=== PATIENT | male | born 1940 | race Caucasian/White ===

== ENCOUNTER 2023-06-10 23:41 | Inpatient (IN) | payer OTHER, MEDICARE ==
[~2023-06-10] VITALS: Ht 175.3 cm; Wt 82.0 kg
[~2023-06-10 23:41] MED LIST: Heparin Sodium,Porcine 5,000 UNIT/0.5 ML SDV SC ONE
[2023-06-11] VITALS (27 sets, daily range): BP systolic 93–141; BP diastolic 50–89
[2023-06-11 00:15] LABS: BASOPHILS ABSOLUTE AUTO 0.04 K/mm3 (0.00-0.23); BASOPHILS PERCENT AUTO 0 % (0-2); EOSINOPHILS ABSOLUTE AUTO 0.03 K/mm3 (0.00-0.68); EOSINOPHILS PERCENT AUTO 0 % (0-6); Hematocrit 38.6 % (37.0-53.0); Hemoglobin 12.9 g/dL (13.5-17.5); IMMATURE GRAN ABSOLUTE AUTO 0.02 K/mm3 (0.00-0.10); IMMATURE GRAN PERCENT AUTO 0 % (0-1); LYMPHOCYTES ABSOLUTE AUTO 2.21 K/mm3 (0.84-5.20); LYMPHOCYTES PERCENT AUTO 20 % (21-46); MONOCYTES ABSOLUTE AUTO 1.01 K/mm3 (0.16-1.47); MONOCYTES PERCENT AUTO 9 % (4-13); Mean Corpuscular HGB 30.9 pg (26.0-34.0); Mean Corpuscular HGB Conc 33.4 g/dL (31.5-36.5); Mean Corpuscular Volume 92 fL (80-100); Mean Platelet Volume 10.3 fL (9.1-12.4); NEUTROPHILS ABSOLUTE AUTO 7.84 K/mm3 (1.96-9.15); NEUTROPHILS PERCENT AUTO 70 % (41-73); Platelet Count 264 K/mm3 (150-400); RDW Coefficient Variation 12.5 % (11.7-14.2); RDW Standard Deviation 42.4 fL (35.1-46.3); Red Blood Cell Count 4.18 M/mm3 (4.30-5.90); White Blood Cell Count 11.15 K/mm3 (4.00-11.30)
[2023-06-11 00:29] LABS: Albumin, Blood 3.7 g/dL (3.4-5.0); Bilirubin, Total 0.7 mg/dL (0.1-1.0); Calcium, Blood 10.2 mg/dL (8.5-10.1); Creatinine, Blood 0.89 mg/dL (0.60-1.20); Globulin, Blood 3.6 g/dL (2.2-4.0); Potassium, Blood 3.8 mmol/L (3.5-5.5); Total Protein, Blood 7.3 g/dL (6.4-8.2)
[2023-06-11] MEDS ORDERED: Aspirin 325 MG Tab ONE (01:06)
[2023-06-11] MEDS ORDERED: Clopidogrel Bisulfate 300 MG Cap ONE (01:13)
[2023-06-11] MEDS ORDERED: LOSA50 PO (01:32)
[2023-06-11] MEDS ORDERED: DILT120 PO (01:32)
[2023-06-11] MEDS ORDERED: ZOCOR20 MG PO (01:32)
[2023-06-11] MEDS ORDERED: CLON2 PO (01:33)
[2023-06-11] MEDS ORDERED: NS 2,000 ML IV ONE (01:35)
[2023-06-11] MEDS ORDERED: Heparin Sodium 1000 Units/ML 10ML MDV ONE (01:36)
[2023-06-11] MEDS ORDERED: NS 250 ML IV ONE (01:36)
[2023-06-11] MEDS ORDERED: Nitroglycerin 2 MG/20 ML BTL ONE (01:37)
[2023-06-11] MEDS ORDERED: Midazolam HCl 1MG / ML 2ML Vial ONE (01:38)
[2023-06-11] MEDS ORDERED: Verapamil HCL 2.5 MG/ML 2ML Injection ONE (01:38)
[2023-06-11] MEDS ORDERED: FentaNYL Citrate 50 MCG/ML 2 ML Injection ONE (01:39)
[2023-06-11] MEDS ORDERED: Tirofiban HCL Monohydrate 3.75 MG/15 ML Vial ONE (02:03)
[2023-06-11] MEDS ORDERED: Acetaminophen 325 MG TABLET PO PRN (02:25)
[2023-06-11] MEDS ORDERED: Ondansetron 4 MG TAB PO PRN (02:25)
[2023-06-11] MEDS ORDERED: NS 1,000 ML IV SCH (02:35)
[2023-06-11] MEDS ORDERED: FentaNYL Citrate 50 MCG/ML 2 ML Injection IV PRN (02:35)
[2023-06-11] MEDS ORDERED: Lactated Ringer's 1,000 ML IV SCH (03:00)
[2023-06-11 04:20] LABS: BASOPHILS ABSOLUTE AUTO 0.04 K/mm3 (0.00-0.23); BASOPHILS PERCENT AUTO 0 % (0-2); EOSINOPHILS ABSOLUTE AUTO 0.02 K/mm3 (0.00-0.68); EOSINOPHILS PERCENT AUTO 0 % (0-6); Hematocrit 36.6 % (37.0-53.0); IMMATURE GRAN ABSOLUTE AUTO 0.03 K/mm3 (0.00-0.10); IMMATURE GRAN PERCENT AUTO 0 % (0-1); LYMPHOCYTES ABSOLUTE AUTO 2.64 K/mm3 (0.84-5.20); LYMPHOCYTES PERCENT AUTO 23 % (21-46); MONOCYTES ABSOLUTE AUTO 0.89 K/mm3 (0.16-1.47); MONOCYTES PERCENT AUTO 8 % (4-13); Mean Corpuscular HGB 30.5 pg (26.0-34.0); Mean Corpuscular HGB Conc 32.8 g/dL (31.5-36.5); Mean Corpuscular Volume 93 fL (80-100); Mean Platelet Volume 10.6 fL (9.1-12.4); NEUTROPHILS ABSOLUTE AUTO 7.99 K/mm3 (1.96-9.15); NEUTROPHILS PERCENT AUTO 69 % (41-73); Platelet Count 254 K/mm3 (150-400); RDW Coefficient Variation 12.4 % (11.7-14.2); Red Blood Cell Count 3.93 M/mm3 (4.30-5.90); White Blood Cell Count 11.61 K/mm3 (4.00-11.30)
[2023-06-11 04:49] LABS: Alanine Aminotransfer (ALT/SGP 17 U/L (12-78); Albumin, Blood 3.3 g/dL (3.4-5.0); Alk Phos 67 U/L (50-136); Anion Gap 9 mmol/L (3-11); Aspartate Aminotrans (AST/SGOT 25 U/L (12-37); Bilirubin, Total 0.7 mg/dL (0.1-1.0); Blood Urea Nitrogen 14 mg/dL (8-24); Bun/Creatinine Ratio 17.5 (12.0-20.0); CO2, Blood 26 mmol/L (21-32); Calcium, Blood 9.4 mg/dL (8.5-10.1); Chloride, Blood 108 mmol/L (98-108); Cholesterol 124 mg/dL (50-200); Globulin, Blood 3.2 g/dL (2.2-4.0); Glomerular Filtration Rate 89 (60-); Glucose, Blood 160 mg/dL (70-99); HDL Cholesterol 63 mg/dL (>39); LDL/HDL RATIO 0.8; Low Density Lipoprotein Chol 49 mg/dL (0-110); Magnesium, Blood 2.2 mg/dL (1.6-2.4); Potassium, Blood 3.7 mmol/L (3.5-5.5); Sodium, Blood 139 mmol/L (136-145); Total Protein, Blood 6.5 g/dL (6.4-8.2); Triglycerides 60 mg/dL (30-160); Very Low Density Lipoprot Chol 12 mg/dL (6-32)
--- NOTE | 2023-06-11 06:08 | NUR ---
PATIENT AOX4. FOLLOWS COMMANDS AND MOVES ALL EXTREMITIES. SR WITH STABLE BP. PATIENT DENIES ANY CHEST PAIN. TR BAND REMOVED AT 0600. ROOM AIR. TOLERATING HEART HEALTHY DIET.
--- NOTE | 2023-06-11 07:34 | NUR ---
ASSUMED CARE OF PT AT 0715 BEDSIDE REPORT RECEIVED FROM NICOLASA ROTH. PT IS A/O X4. SR, ST ELEVATION STILL PRESENT. BP WNL. DENIES ANY CHEST PAIN/PRESSURE/DISCOMFORT. POST PROCEDURE EKG WAS COMPLETED UPON PT ARRIVAL TO ICU. CONTINUOUS CARDIAC MONITORING IN PLACE. TR BAND OFF SINCE 0600, NO HEMATOMA OR S/S BLEEDING. 02 SAT 94% ON ROOM AIR. PT IS CURRENT EVERY DAY SMOKER. HEART HEALTHY DIET, DENIES NAUSEA. HAS NOT VOIDED SINCE ADMIT TO ICU, PT HAS URINAL AT BEDSIDE. SKIN INTACT WITH EXCEPTION OF WRIST ACCESS SITE. PIV X2, NS AT 200 ML/HR INFUSING. NO FAMILY AT BEDSIDE. PT STATES HE WILL UPDATE HIS THIS MORNING. CELL PHONE AT BEDSIDE. POC ONGOING.
[2023-06-11] MEDS ORDERED: Carvedilol 6.25 MG Tab PO SCH (08:00)
[2023-06-11] MEDS ORDERED: Losartan Potassium 50 MG Tab PO SCH (09:00)
[2023-06-11] MEDS ORDERED: Aspirin 81 MG Chew PO SCH ×2 (09:00)
[2023-06-11] MEDS ORDERED: Metoprolol Tartrate 25 MG Tab PO SCH (09:00)
[2023-06-11] MEDS ORDERED: Losartan Potassium 25 MG Tab PO SCH (09:00)
[2023-06-11] MEDS ORDERED: Clopidogrel Bisulfate 75 MG Tab PO SCH (09:00)
[2023-06-11] MEDS ORDERED: Atorvastatin 40 MG Tab PO SCH ×2 (09:00→21:00)
--- NOTE | 2023-06-11 15:12 | NUR ---
PT TRANSFERRED TO PCU BED 5 AT 1415 TRANSPORTED VIA W/C ACCOMPANIED BY RN AND STUDENT RN. REPORT GIVEN AT BEDSIDE. PT REMAINS A/O X4, SR WITH ST ELEVATION, BP SOFT BUT MAP REMAINS > 65. ON ROOM AIR, LUNGS CTA X ALL NOBLES. GOOD APPETITE, EATING 100% OF HEART HEALTHY DIET. DENIES ANY NAUSEA OR HEARTBURN. VOIDS USING THE URINAL, PT REPORTS URINE IS DARKER THAN NORMAL. DISCUSSED IMPORTANCE OF HYDRATION DUE TO CONTRAST USED DURING PROCEDURE. SKIN INTACT, LARGE BRUISE DOWN LEFT HIP AND LEG DUE TO FALL AT HOME 2 WEEKS AGO. FALL WAS WHILE CUTTING DOWN TREES ON HIS PROPERTY. PIV X2, BOTH SL. PT IS NOT A SMOKER PREVIOUSLY NOTED. HE STATES HE HAS NEVER SMOKED CIGARETTES. NO FAMILY AT BEDSIDE. PTS IS HOME, HAS DEMENTIA BUT IS ABLE TO CARE FOR SELF UNTIL PT RETURNS HOME. NO OTHER FAMILY LOCALLY. PT HAS BEEN UPDATING HIS VIA PHONE. POC ONGOING.
--- NOTE | 2023-06-11 17:50 | NUR ---
ASSUMED CARE/SHIFT SUMMARY PT ARRIVED AT ROOM VIA WHEELCHAIR. AOX4 ON ROOM AIR AND SATTING IN THE 90S. ON TELE. ST ELEVATION PRESENT PRIOR TO TRANSFER FROM ICU, EXPECTED PER REPORT. VSS. HEART HEALTHY DIET. ATE DINNER W/O COMPLAINTS OF N/V. INDEPENDENT IN THE ROOM. USES BR. EXPECTED TO D/C TOMORROW. NO ACUTE EVENTS SINCE ARRIVAL THIS AFTERNOON. CURRENTLY LYING IN BED WATCHING TV. MOOD IS PLEASANT. CALL LIGHT IN REACH.
[2023-06-12 03:14] VITALS: BP 105/83
--- NOTE | 2023-06-12 04:47 | NUR ---
SHIFT ASSESSMENT: PT A/Ox4 AND PLEASANT W/CARE T/O SHIFT. RT RADIAL TR BAND RECOVERED ON AM SHIFT, NO BLOOD/BRUISING NOTED, PT DENIES PAIN TO SITE, ARM BOARD IN PLACE. TELE: SR 70s-80s W/ ST ELEVATION, PROVIDER AWARE. BP STABLE, PT DENIES CP, PRESSURE, OR SOB. SPO2 >93% ON RA. PT INDEPENDENT IN ROOM TO BR, GOOD OUTPUT, DARK YELLOW URINE. PT EDUCATED ON KEEPING HYDRATED. CALL LIGHT IN REACH AND BED IN LOWEST POSITION. WILL REPORT TO ONCOMING RN.
[2023-06-12 07:32] VITALS: BP 133/68
[2023-06-12] MEDS ORDERED: ALLEGRA ALLERG180 MG PO (07:53)
[2023-06-12] MEDS ORDERED: Retin-A20 G2 (07:53)
[2023-06-12] MEDS ORDERED: Apixaban 5 MG Tab PO SCH (11:30)
[2023-06-12 11:42] VITALS: BP 136/90
[2023-06-12] MEDS ORDERED: ATOR40TA PO (12:44)
[2023-06-12] MEDS ORDERED: ELIQUIS5 M2 PO (12:45)
[2023-06-12] MEDS ORDERED: ASPI81CH PO (12:46)
[2023-06-12] MEDS ORDERED: CLOP75 PO (12:47)
[2023-06-12] MEDS ORDERED: CARV6.25 PO (12:47)
--- NOTE | 2023-06-12 13:20 | NUR ---
DISCHARGE/ SUMMARY PT D/C VIA [facility] TO POV AT APPROXIMATELY 1320. D/C INSTRUCTIONS REVIEWED AND ALL QUESTIONS ANSWERED. PT A&O X4, ABLE TO MAKE NEEDS KNOWN. VSS, AFEBRILE, SPO2 >90% ON RA. RIGHT RADIAL ARTERY SITE IS WITHOUT REDNESS, INFLAMMATION, OR HEMATOMA. PT DENIES CP OR SOB.
== END 2023-06-12 13:32 | disposition home or self-care (01) | DRG 322 ==
LOC: ER 23:41 → ICUE 23:42 → PCU 06-11 02:22 → ICUE 06-11 02:30 → PCU 06-11 14:20
PROVIDERS: Emergency Medicine; Student in an Organized Health Care Education/Training Program; ADMIT Internal Medicine Interventional Cardiology
PROC: 027034Z Dilation of Coronary Artery, One Artery with Drug-eluting Intraluminal Device, Percutaneous Approach (ICD-10-PCS; principal; 2023-06-11)
PROC: B2111ZZ Fluoroscopy of Multiple Coronary Arteries using Low Osmolar Contrast (ICD-10-PCS; 2023-06-11)
DX: I21.09 ST elevation (STEMI) myocardial infarction involving other coronary artery of anterior wall (principal); I31.39 Other pericardial effusion (noninflammatory); I25.10 Atherosclerotic heart disease of native coronary artery without angina pectoris
CPT/HCPCS: 36415; 76937; 80053; 80061; 83735; 84443; 84484; 85025; 85347; 93005; 93010; 93454; 94762; 99152; 99153; 99285-25; A9270; C1725; C1769; C1874; C1887; C1894; C8929; C9606; J1644; J2250; J3010; J3246; J7030; J7050; Q9957; Q9967